=== PATIENT | female | born 1985 | race American Indian/Alaskan Native ===

== ENCOUNTER 2017-08-19 12:17 | Emergency (ER) | payer OTHER ==
[2017-08-19 13:32] LABS: Basophils % (Auto) 1.4 % (0.0-1.8); Eosinophils % (Auto) 0.7 % (0.0-4.3); Hematocrit 41.3 % (30.3-42.9); Hemoglobin 13.9 gm/dl (10.1-14.3); Lymphocytes # (Auto) 0.8 K/mm3 (1.2-5.4); Lymphocytes % (Auto) 32.4 % (13.4-35.0); Mean Corpuscular HGB Conc 34 % (30-34); Mean Corpuscular Hemoglobin 34 pg (28-32); Mean Corpuscular Volume 100 fl (79-97); Monocytes # (Auto) 0.3 K/mm3 (0.0-0.8); Monocytes % (Auto) 11.5 % (0.0-7.3); Platelet Count 145 K/mm3 (140-440); Red Blood Count 4.13 M/mm3 (3.65-5.03); Red Cell Distribution Width 13.9 % (13.2-15.2)
[2017-08-19 13:54] LABS: Alanine Aminotransferase 147 units/L (7-56); Albumin 3.8 g/dL (3.9-5); BUN/Creatinine Ratio 9; Blood Urea Nitrogen 6 mg/dL (7-17); Calcium 9.2 mg/dL (8.4-10.2); Hemolysis Index 46; Lipase 64 units/L (13-60)
[2017-08-19 14:07] LABS: HCG Qualitative,Urine Negative (Negative)
[2017-08-19 14:09] LABS: Bilirubin,Urine SM (Negative); Blood,Urine NEG (Negative); Calcium Oxalate Crystals,Urine 3+; Color,Urine Amber (Yellow); Mucus,Urine 3+ /HPF
[2017-08-19 14:12] LABS: Ictotest,Urine Negative (Negative)
[2017-08-19] MEDS ORDERED: NACL 0.9% 1000 ML 2,000 ML IV ONE (15:53)
[2017-08-19] MEDS ORDERED: ZOFRAN IV ONE (15:54)
[2017-08-19] MEDS ORDERED: TORADOL IV ONE (15:55)
--- NOTE | 2017-08-19 16:12 | Emergency Department Report ---
<HOLLY LEON - Last Filed: 08/19/17 20:57> ED Abdominal Pain HPI - General Chief Complaint: Abdominal Pain Stated Complaint: NAUSEA/VOMITING Time Seen by Provider: 08/19/17 15:47 Source: patient Mode of arrival: Ambulatory Limitations: No Limitations - History of Present Illness Initial Comments: Patient reports that she's been having nausea vomiting and diarrhea 1 month. She says she's been having lower abdominal cramping 3 months. She says she has a history of HIV since age 14 that she contracted from infected person. She is currently on no antiviral medication but has been on antiviral in the past. Patient says usually goes to [place] but her mom told her to come here because she is just feeling sick and feels like she needs to be seen right away. She says she hasn't been able to eat for month and she is having night sweats, numbness and one episode of bright red blood in her vomit yesterday. Patient said that she does not have any appetite and not able to eat anything and that she's lost 20 pounds over the last 2 months. She reports some cough and denies any shortness of breath or chest pain. Abdominal pain is 7 out of 10 and crampy. Nothing makes it better nothing makes it worse. I asked patient if she drinks alcohol and she says she drinks about half a pint daily. Denies taking any medication for pain. Last menstrual period was 11/25/2017. She doesn't remember when her last viral load or T-cell was. Denies any urinary burning, frequency or urgency. Denies any back pain. MD Complaint: abdominal pain, other (as a vomiting and diarrhea) Onset/Timin -: month(s) Location: suprapubic Radiation: none Migration to: no migration Severity: severe Severity scale (0 -10): 7 Quality: cramping Consistency: intermittent Improves With: nothing Worsens With: nothing Context: other (unknown, patient is HIV positive without any medication) Associated Symptoms: nausea, vomiting, diarrhea, chills, hematemesis, anorexia. denies: fever, constipation, dysuria, hematochezia, melena, hematuria, syncope Treatments Prior to Arrival: other - Related Data LMP Date: 08/13/17 Home Medications Medication Instructions Recorded Confirmed Last Taken risperiDONE [RisperiDONE] 1 mg PO QDAY 05/26/15 07/27/15 05/26/15 09:00 Previous Rx's Medication Instructions Recorded Last Taken Type Levofloxacin [Levaquin TAB] 500 mg PO Q24HR #3 tablet 07/27/15 Unknown Rx Omeprazole 20 mg PO BID #60 tablet. 08/19/17 Unknown Rx Ondansetron [Zofran Odt] 4 mg PO TID PRN #20 tab.rapdis 08/19/17 Unknown Rx traMADol [Ultram 50 MG tab] 50 mg PO Q6HR PRN #20 tablet 08/19/17 Unknown Rx Allergies Allergy/AdvReac Type Severity Reaction Status Date / Time No Known Allergies Allergy Verified 07/26/15 01:52 ED Review of Systems ROS: Stated complaint: NAUSEA/VOMITING Other details as noted in HPI Comment: All other systems reviewed and negative Constitutional: chills, malaise, weakness. denies: fever Eyes: denies: eye discharge, vision change ENT: denies: ear pain, throat pain, dental pain, hearing loss, congestion Respiratory: denies: cough, orthopnea, shortness of breath, SOB with exertion, SOB at rest, stridor, wheezing Cardiovascular: denies: chest pain, palpitations, dyspnea on exertion, orthopnea , edema, syncope, paroxysmal nocturnal dyspnea Gastrointestinal: abdominal pain, nausea, vomiting, diarrhea, hematemesis. denies: constipation, melena, hematochezia Genitourinary: denies: urgency, dysuria, frequency, hematuria, discharge, abnormal menses, dyspareunia Musculoskeletal: denies: back pain, joint swelling, arthralgia, myalgia Skin: denies: rash, lesions, pruritus Neurological: weakness. denies: headache, numbness, paresthesias, confusion, abnormal gait, vertigo ED Past Medical Hx - Past Medical History Previous Medical History?: Yes Hx Kidney Stones: Yes (ARF) Hx Psychiatric Treatment: Yes (ANXIETY) Hx HIV: Yes (no on meds) Additional medical history: adm for n/v - Surgical History Past Surgical History?: Yes Additional Surgical History: LASER SURGERY TO CERVIX, grafting r/t reynoso - Family History Family history: hypertension - Social History Smoking Status: Never Smoker Substance Use Type: Alcohol Other Social History: SINGLE - Medications Home Medications: Home Medications Medication Instructions Recorded Confirmed Last Taken Type risperiDONE [RisperiDONE] 1 mg PO QDAY 05/26/15 07/27/15 05/26/15 09:00 History Levofloxacin [Levaquin TAB] 500 mg PO Q24HR #3 tablet 07/27/15 Unknown Rx Omeprazole 20 mg PO BID #60 tablet. 08/19/17 Unknown Rx Ondansetron [Zofran Odt] 4 mg PO TID PRN #20 tab.rapdis 08/19/17 Unknown Rx traMADol [Ultram 50 MG tab] 50 mg PO Q6HR PRN #20 tablet 08/19/17 Unknown Rx ED Physical Exam - General Limitations: No Limitations General appearance: alert, in no apparent distress - Head Head exam: Present: atraumatic, normocephalic, normal inspection, other - Eye Eye exam: Present: normal appearance, PERRL, EOMI. Absent: scleral icterus, conjunctival injection, nystagmus Pupils: Present: normal accommodation - ENT ENT exam: Present: normal orophraynx, mucous membranes dry, TM's normal bilaterally, normal external ear exam - Neck Neck exam: Present: normal inspection, full ROM, other. Absent: tenderness, meningismus, lymphadenopathy - Respiratory Respiratory exam: Present: normal lung sounds bilaterally. Absent: respiratory distress, chest wall tenderness, accessory muscle use, decreased breath sounds, prolonged expiratory - Cardiovascular Cardiovascular Exam: Present: normal rhythm, tachycardia. Absent: systolic murmur, diastolic murmur, rubs, gallop - GI/Abdominal GI/Abdominal exam: Present: soft, normal bowel sounds. Absent: distended, tenderness, guarding, rebound, rigid, organomegaly, mass, bruit, pulsatile mass , hernia - Extremities Exam Extremities exam: Present: normal inspection, full ROM, normal capillary refill , other. Absent: tenderness, pedal edema, joint swelling, calf tenderness - Back Exam Back exam: Present: normal inspection, full ROM, other (AMBULATES without any difficulties). Absent: tenderness, CVA tenderness (L), muscle spasm, paraspinal tenderness, vertebral tenderness, rash noted - Neurological Exam Neurological exam: Present: alert, oriented X3 - Psychiatric Psychiatric exam: Present: normal affect, normal mood - Skin Skin exam: Present: warm, dry, intact, normal color. Absent: rash ED Course Vital Signs 08/19/17 08/19/17 12:30 20:38 Temperature 97.9 F 98.8 F Pulse Rate 113 H 90 Respiratory 16 16 Rate Blood Pressure 118/87 Blood Pressure 99/64 [Left] O2 Sat by Pulse 96 99 Oximetry - Reevaluation(s) Reevaluation #1: 08/19/17 17:[address] Rivas and labs ordered. Awaiting CT scan of the abdomen and pelvis with by mouth and IV contrast. Patient also received Zofran 4 mg IV for nausea, Toradol 30 mg IV for pain and she is currently receiving IV fluid normal saline at 1 L. Reevaluation #2: 08/19/17 19:01 Patient is stable at present. She says she is feeling better. Chest x-ray reveals no acute cardiopulmonary processes. Patient had CT scan of the abdomen and pelvis with IV and by mouth contrast and results are still pending. Reevaluation #3: 08/19/17 19:30 Pt stable. Abdomen NTTP. Still awaiting CT scan results. Feeling better ED Medical Decision Making - Lab Data Result diagrams: 08/19/17 13:20 08/19/17 13:20 Lab Results 08/19/17 08/19/17 08/19/17 Range/Units 13:20 13:20 13:34 WBC 2.5 L (4.5-11.0) K/mm3 RBC 4.13 (3.65-5.03) M/mm3 Hgb 13.9 (10.1-14.3) gm/dl Hct 41.3 (30.3-42.9) % MCV 100 H (79-97) fl MCH 34 H (28-32) pg MCHC 34 (30-34) % RDW 13.9 (13.2-15.2) % Plt Count 145 (140-440) K/mm3 Lymph % (Auto) 32.4 (13.4-35.0) % [place] % (Auto) 11.5 H (0.0-7.3) % Eos % (Auto) 0.7 (0.0-4.3) % Baso % (Auto) 1.4 (0.0-1.8) % Lymph # 0.8 L (1.2-5.4) K/mm3 [place] # 0.3 (0.0-0.8) K/mm3 Eos # 0.0 (0.0-0.4) K/mm3 Baso # 0.0 (0.0-0.1) K/mm3 Seg Neutrophils % 54.0 (40.0-70.0) % Seg Neutrophils # 1.3 L (1.8-7.7) K/mm3 PT (12.2-14.9) Sec. INR (0.87-1.13) APTT (24.2-36.6) Sec. Sodium 137 (137-145) mmol/L Potassium 3.8 (3.6-5.0) mmol/L Chloride 95.6 L (98-107) mmol/L Carbon Dioxide 23 (22-30) mmol/L Anion Gap 22 mmol/L BUN 6 L (7-17) mg/dL Creatinine 0.7 (0.7-1.2) mg/dL Estimated GFR > 60 ml/min BUN/Creatinine Ratio 9 % Glucose 109 H (65-100) mg/dL Lactic Acid (0.7-2.0) mmol/L Calcium 9.2 (8.4-10.2) mg/dL Total Bilirubin 0.90 (0.1-1.2) mg/dL AST 491 H (5-40) units/L ALT 147 H (7-56) units/L Alkaline Phosphatase 80 (35-129) units/L Total Protein 9.7 H (6.3-8.2) g/dL Albumin 3.8 L (3.9-5) g/dL Albumin/Globulin Ratio 0.6 % Lipase 64 H (13-60) units/L TSH (0.270-4.200) mlU/mL Free T4 (0.76-1.46) ng/dL Urine Color Katelyn (Yellow) Urine Turbidity Clear (Clear) Urine pH 5.0 (5.0-7.0) Ur Specific [place] 1.032 H (1.003-1.030) Urine Protein 100 mg/dl (Negative) mg/dL Urine Glucose (UA) Neg (Negative) mg/dL Urine Ketones Neg (Negative) mg/dL Urine Blood Neg (Negative) Urine Nitrite Neg (Negative) Ur Reducing Substances Not Reportable Urine Bilirubin Sm (Negative) Urine Ictotest Negative (Negative) Urine Urobilinogen 4.0 (<2.0) mg/dL Ur Leukocyte Esterase Neg (Negative) Urine WBC (Auto) 3.0 (0.0-6.0) /HPF Urine RBC (Auto) 8.0 (0.0-6.0) /HPF U Epithel Cells (Auto) 5.0 (0-13.0) /HPF Calcium Oxalate Crystal 3+ Urine Mucus 3+ /HPF Urine HCG, Qual Negative (Negative) 08/19/17 08/19/17 08/19/17 Range/Units 15:57 15:57 15:57 WBC (4.5-11.0) K/mm3 RBC (3.65-5.03) M/mm3 Hgb (10.1-14.3) gm/dl Hct (30.3-42.9) % MCV (79-97) fl MCH (28-32) pg MCHC (30-34) % RDW (13.2-15.2) % Plt Count (140-440) K/mm3 Lymph % (Auto) (13.4-35.0) % [place] % (Auto) (0.0-7.3) % Eos % (Auto) (0.0-4.3) % Baso % (Auto) (0.0-1.8) % Lymph # (1.2-5.4) K/mm3 [place] # (0.0-0.8) K/mm3 Eos # (0.0-0.4) K/mm3 Baso # (0.0-0.1) K/mm3 Seg Neutrophils % (40.0-70.0) % Seg Neutrophils # (1.8-7.7) K/mm3 PT 13.1 (12.2-14.9) Sec. INR 0.95 (0.87-1.13) APTT 28.3 (24.2-36.6) Sec. Sodium (137-145) mmol/L Potassium (3.6-5.0) mmol/L Chloride (98-107) mmol/L Carbon Dioxide (22-30) mmol/L Anion Gap mmol/L BUN (7-17) mg/dL Creatinine (0.7-1.2) mg/dL Estimated GFR ml/min BUN/Creatinine Ratio % Glucose (65-100) mg/dL Lactic Acid 1.90 (0.7-2.0) mmol/L Calcium (8.4-10.2) mg/dL Total Bilirubin (0.1-1.2) mg/dL AST (5-40) units/L ALT (7-56) units/L Alkaline Phosphatase (35-129) units/L Total Protein (6.3-8.2) g/dL Albumin (3.9-5) g/dL Albumin/Globulin Ratio % Lipase (13-60) units/L TSH (0.270-4.200) mlU/mL Free T4 1.10 (0.76-1.46) ng/dL Urine Color (Yellow) Urine Turbidity (Clear) Urine pH (5.0-7.0) Ur Specific [place] (1.003-1.030) Urine Protein (Negative) mg/dL Urine Glucose (UA) (Negative) mg/dL Urine Ketones (Negative) mg/dL Urine Blood (Negative) Urine Nitrite (Negative) Ur Reducing Substances Urine Bilirubin (Negative) Urine Ictotest (Negative) Urine Urobilinogen (<2.0) mg/dL Ur Leukocyte Esterase (Negative) Urine WBC (Auto) (0.0-6.0) /HPF Urine RBC (Auto) (0.0-6.0) /HPF U Epithel Cells (Auto) (0-13.0) /HPF Calcium Oxalate Crystal Urine Mucus /HPF Urine HCG, Qual (Negative) 08/19/17 Range/Units 15:57 WBC (4.5-11.0) K/mm3 RBC (3.65-5.03) M/mm3 Hgb (10.1-14.3) gm/dl Hct (30.3-42.9) % MCV (79-97) fl MCH (28-32) pg MCHC (30-34) % RDW (13.2-15.2) % Plt Count (140-440) K/mm3 Lymph % (Auto) (13.4-35.0) % [place] % (Auto) (0.0-7.3) % Eos % (Auto) (0.0-4.3) % Baso % (Auto) (0.0-1.8) % Lymph # (1.2-5.4) K/mm3 [place] # (0.0-0.8) K/mm3 Eos # (0.0-0.4) K/mm3 Baso # (0.0-0.1) K/mm3 Seg Neutrophils % (40.0-70.0) % Seg Neutrophils # (1.8-7.7) K/mm3 PT (12.2-14.9) Sec. INR (0.87-1.13) APTT (24.2-36.6) Sec. Sodium (137-145) mmol/L Potassium (3.6-5.0) mmol/L Chloride (98-107) mmol/L Carbon Dioxide (22-30) mmol/L Anion Gap mmol/L BUN (7-17) mg/dL Creatinine (0.7-1.2) mg/dL Estimated GFR ml/min BUN/Creatinine Ratio % Glucose (65-100) mg/dL Lactic Acid (0.7-2.0) mmol/L Calcium (8.4-10.2) mg/dL Total Bilirubin (0.1-1.2) mg/dL AST (5-40) units/L ALT (7-56) units/L Alkaline Phosphatase (35-129) units/L Total Protein (6.3-8.2) g/dL Albumin (3.9-5) g/dL Albumin/Globulin Ratio % Lipase (13-60) units/L TSH 0.622 (0.270-4.200) mlU/mL Free T4 (0.76-1.46) ng/dL Urine Color (Yellow) Urine Turbidity (Clear) Urine pH (5.0-7.0) Ur Specific [place] (1.003-1.030) Urine Protein (Negative) mg/dL Urine Glucose (UA) (Negative) mg/dL Urine Ketones (Negative) mg/dL Urine Blood (Negative) Urine Nitrite (Negative) Ur Reducing Substances Urine Bilirubin (Negative) Urine Ictotest (Negative) Urine Urobilinogen (<2.0) mg/dL Ur Leukocyte Esterase (Negative) Urine WBC (Auto) (0.0-6.0) /HPF Urine RBC (Auto) (0.0-6.0) /HPF U Epithel Cells (Auto) (0-13.0) /HPF Calcium Oxalate Crystal Urine Mucus /HPF Urine HCG, Qual (Negative) - Radiology Data Radiology results: report reviewed CXR no acute findings Critical care attestation.: If time is entered above; I have spent that time in minutes in the direct care of this critically ill patient, excluding procedure time. ED Disposition Clinical Impression: Fatty liver disease, nonalcoholic, Renal stones, Mild dehydration Disposition: DC-01 TO HOME OR SELFCARE Condition: Good Instructions: Abdominal Pain (ED), Kidney Stones (ED), Non-Alcoholic Fatty Liver Disease (ED) Prescriptions: Omeprazole 20 mg PO BID #60 tablet. Ondansetron [Zofran Odt] 4 mg PO TID PRN #20 tab.rapdis PRN Reason: Nausea And Vomiting traMADol [Ultram 50 MG tab] 50 mg PO Q6HR PRN #20 tablet PRN Reason: Pain Referrals: PRIMARY CARE,MD [Primary Care Provider] - 3-5 Days Forms: Work/School Release Form(ED) <ANEL GARCIA - Last Filed: 08/19/17 22:51> ED Medical Decision Making - Lab Data Result diagrams: 08/19/17 13:20 08/19/17 13:20 - Radiology Data Radiology results: image reviewed ct abd pelvis, fatty liver, bilat nonobstructing calcifications no hydronephrosis - Medical Decision Making tp states pain improved no n/v pain 04/17 , pt is tolerating po intake, pt is know at [facility] Yves Mendez, will follow up with same tomorrow, plan, zofran odt, tramadol, po , pt with follow up at [facility] clinic tomorrow ED Disposition Is pt being admited?: No Does the pt Need Aspirin: No Time of Disposition: 22:51
[2017-08-19 16:30] LABS: INR 0.95 (0.87-1.13)
[2017-08-19 16:31] LABS: Partial Thromboplastin Time 28.3 Sec. (24.2-36.6)
--- NOTE | 2017-08-19 17:45 | XRay Report ---
FINAL REPORT EXAM: XR CHEST ROUTINE 2V HISTORY: cough, weifgt loss/hymoptysis TECHNIQUE: Frontal and lateral chest x-ray. PRIORS: None. FINDINGS: Cardiac and mediastinal silhouette within normal limits. Lungs are normally expanded, without significant vascular congestion. No focal consolidation, pleural effusion or apparent pneumothorax. Bony thorax grossly unremarkable. IMPRESSION: 1. No acute consolidation.
[2017-08-19 20:38] VITALS: BP 99/64
--- NOTE | 2017-08-19 22:04 | Emergency Department Report ---
Chief Complaint: Abdominal Pain Stated Complaint: NAUSEA/VOMITING Time Seen by Provider: 08/19/17 15:47 - HPI History of Present Illness: The patient is a 32-year-old female with a history of HIV, who presents for evaluation of a number of complaints including abdominal pain. The patient reports onset of abdominal pain for months, constant severe for the past one day , crampy in quality, exacerbated with retching. She reports associated nausea and multiple episodes of nonbilious, nonbloody emesis, and loose watery stools for greater than the past month. The patient admits to noncompliance with anti- retroviral regimen. - Exam Vital Signs: Vital Signs 08/19/17 08/19/17 12:30 20:38 Temperature 97.9 F 98.8 F Pulse Rate 113 H 90 Respiratory 16 16 Rate Blood Pressure 118/87 Blood Pressure 99/64 [Left] O2 Sat by Pulse 96 99 Oximetry MSE screening note: Focused history and physical exam performed. Due to findings the following was ordered: ED Medical Decision Making - Lab Data Result diagrams: 08/19/17 13:20 08/19/17 13:20 ED Disposition for MSE Clinical Impression: Abnormal liver enzymes, HIV disease, Dehydration Leukocytopenia, unspecified Qualifiers: Leukopenia type: unspecified Qualified Code(s): D72.819 - Decreased white blood cell count, unspecified Abdominal pain Qualifiers: Abdominal location: lower abdomen, unspecified Qualified Code(s): R10.30 - Lower abdominal pain, unspecified Nausea & vomiting Qualifiers: Vomiting type: unspecified Vomiting Intractability: non-intractable Qualified Code(s): R11.2 - Nausea with vomiting, unspecified Condition: Undetermined Instructions: Abdominal Pain (ED) Referrals: PRIMARY CARE,MD [Primary Care Provider] - 3-5 Days
--- NOTE | 2017-08-19 22:25 | Cat Scan Report ---
FINAL REPORT EXAM: CT ABDOMEN PELVIS W CON HISTORY: abdominal pain, intractable vomiting TECHNIQUE: Spiral CT scanning of the abdomen and pelvis after the uneventful administration of IV contrast. Multiplanar reformations. PRIORS: None. FINDINGS: Abdomen: Visualized lung bases grossly unremarkable. No radiopaque gallstones. Liver mildly enlarged and shows decreased attenuation without focal abnormality. Spleen without significant abnormality. Pancreas without significant abnormality. Punctate calcifications x1 noted in the bilateral kidneys measuring approximately 1-2 mm. No significant hydronephrosis. Possible subcentimeter, right renal cyst. Adrenal glands without significant abnormality. Pelvis: Bowel grossly unremarkable. Appendix within normal limits. No significant free peritoneal fluid, discrete abscess or apparent adenopathy. Abdominal aorta non-aneurysmal. IMPRESSION: 1. Findings compatible with hepatomegaly and fatty infiltration in the liver. 2. Punctate, nonobstructing bilateral renal calcifications. No significant hydronephrosis.
== END 2017-08-19 22:55 | disposition home or self-care (01) ==
LOC: ED 12:17
DX: K76.0 Fatty (change of) liver, not elsewhere classified (principal); N20.0 Calculus of kidney; E86.0 Dehydration; F41.9 Anxiety disorder, unspecified
CPT/HCPCS: 36415; 71046; 74177; 80053; 81001; 81025; 82140; 83690; 84439; 84443; 85025; 85610; 85730; 96361; 96374; 96375; 99284; J1885; J2405; J7030; Q9967